=== PATIENT | female | born 1975 | race Caucasian/White ===

== ENCOUNTER 2023-07-29 08:19 | Outpatient (CLI) | payer OTHER ==
[2023-07-29 15:10] LABS: BASOPHILS # (AUTO) 0.1 10^3/uL (0.0-0.1); BASOPHILS % (AUTO) 1.2 %; EOSINOPHILS # (AUTO) 0.2 10^3/uL (0.0-0.7); EOSINOPHILS % (AUTO) 2.7 %; HCT - HEMATOCRIT 42.2 % (37.0-47.0); HGB - HEMOGLOBIN 13.6 g/dL (12.0-16.0); LYMPHOCYTES # (AUTO) 1.7 10^3/uL (1.5-3.5); LYMPHOCYTES % (AUTO) 28.1 %; MEAN CORPUSCULAR HGB CONC 32.2 g/dL (32.0-36.0); MEAN CORPUSCULAR VOLUME 96.1 fL (81.0-99.0); MEAN PLATELET VOLUME 9.6 fL (7.9-10.8); MONOCYTES # (AUTO) 0.4 10^3/uL (0.0-1.0); MONOCYTES % (AUTO) 6.7 %; NEUTROPHILS # (AUTO) 3.6 10^3/uL (1.5-6.6); NEUTROPHILS % (AUTO) 61.1 %; PLT - PLATELET COUNT 277 10^3/uL (130-450); RED BLOOD COUNT 4.39 10^6/uL (4.20-5.40); RED CELL DISTRIBUTION WIDTH 12.2 % (12.0-15.0); WHITE BLOOD COUNT 5.9 x10^3/uL (4.8-10.8)
[2023-07-29 15:51] LABS: CHOL/HDL RATIO 3.1 (<4.4); CHOLESTEROL 207 mg/dL; CRP - C-REACTIVE PROTEIN < 0.5 mg/dL (<0.5); HDL CHOLESTEROL 67 mg/dL; LDL CHOLESTEROL,CALCULATED 118 mg/dL; LDL/HDL RATIO 1.8 (<4.4); TRIGLYCERIDES 112 mg/dL (48-352); URIC ACID 4.1 mg/dL (2.3-6.6); VLDL CHOLESTEROL 22 mg/dL
[2023-07-29 16:01] LABS: RHEUMATOID FACTOR NEGATIVE (Negative)
[2023-07-30 17:08] LABS: ANTI-DNA (DS) AB QN 4 IU/mL (0-9)
== END 2023-07-29 08:20 | disposition home or self-care (01) ==
LOC: LAB.S 08:19
PROVIDERS: ATTEND Physician Assistant Medical
DX: M15.4 Erosive (osteo)arthritis (principal); Z13.9 Encounter for screening, unspecified
CPT/HCPCS: 36415; 80061; 81374; 83721; 84550; 85025; 85651; 86038; 86140; 86160; 86200; 86225; 86430

== ENCOUNTER 2023-10-22 10:20 | Outpatient (CLI) | payer OTHER ==
--- NOTE | 2023-10-22 10:56 | Sleep Patient Instructions ---
Sleep Center Visit Summary - Patient Visit Information Reason for Visit: Initial consult for evaluation of sleep disordered breathing and other sleep issues. - Patient Instructions Additional Instructions: You will be completing a sleep study, either an in-lab polysomnography (PSG) or home sleep study (HST). You will follow-up in the sleep care office after the sleep study is completed to hear the results and talk about therapy, if needed. You will be called by our office staff to schedule this appointment, but you may contact us with any questions. - Clinic Information Contact: [facility] [address] [place] [id number] [email or web address] T: [phone]
--- NOTE | 2023-10-22 11:00 | SLEEP CARE CONSULTATION ---
Information from patient questionnaire entered by Sterling Lea. I have reviewed and concur with the information entered by Sterling Lea. This document represents the service I personally performed and the decisions made by me, Anabella Edwards ARNP. History of Present Illness Service Date and Time: 10/22/2023 1020 Reason for Visit: New patient Chief Complaint: reports: Excessive daytime sleepiness, Observed pauses in breathing, Fatigue Date of Onset: DECADE Usual bedtime: 2100 Time it takes to fall asleep: 30MINS Snores at night: Yes Observed to quit breathing while asleep: Yes Sleeps alone due to snoring: Yes Number of times waking at night: 4 Reasons for waking at night: reports: Choking, Snoring, Gasping for air, Pain, Bathroom, Other (NOISE AND UNKNOWN REASONS) Toss, Turn, or Twitch while sleeping: Yes Recalls having dreams: Yes Usually gets out of bed at: 0700 Feels refreshed in the morning: No Morning headache: No Sleepy or fatigued during the day: Yes Ever fallen asleep while driving: No Takes day naps: Yes (1 time a month) Dreams during day naps: Yes Prior sleep studies: Yes Year and Where: 2013 Additional HPI information: I had the pleasure of seeing EMY PEDROZA today regarding the possibility of her having a sleep disorder. Her current complaints are excessive daytime sleepiness, observed pauses in breathing and fatigue. She says about 10 years ago she was diagnosed with severe sleep apnea in [facility]. They did set her up with a CPAP but she just could not tolerate using it. She is currently being treated for restless leg syndrome with pramipexole with improvement of her RLS. She returns today because she knows she needs to take care of her sleep apnea. She states she has lost about 20 pounds in the last 5 years. She does not feel she has been waking up gasping or choking in her sleep very much. She still snores. She is fatigued and sleepy throughout the day but states lately she has not been napping very often. - Parasomnia Symptoms Ever been unable to move upon waking from sleep: No Walks in sleep: No Talks in sleep: Yes Ever acted out dreams in sleep: No Ever felt weak in the knees when startled or emotional: No Bothered by creepy, crawly, restless sensations in legs: Yes (treated for RLS, controlled with pramipexole) Problems with memory or concentration: Yes (both) Subjective Initial [place] Sleepiness Scale score: 5 (10/22/23) Past Medical History Past Medical History: reports: Hypertension, Depression, Other (RLS) Social History The patient's occupation is a [employer]. Patient is and lives in [place]. Have you smoked in the past 12 months: No Alcohol use: Yes Alcohol amount and frequency: COUPLE DRINKS A WEEK Caffeine use: Yes Caffeine amount and frequency: 1 DAILY Family History Family history of sleep disordered breathing: Yes Family Hx Sleep Apnea: Father: Snoring, Sleep apnea - Treated, Sleep apnea - Untreated, Sibling: Snoring, Sleep apnea - Treated Allergies and Home Medications Known drug allergies: No Drug allergies reviewed: Yes Home medication list reviewed: Yes (as listed) Allergy and home medication list: Allergies No Known Drug Allergies Allergy (Verified 10/22/23 10:39) Home Medications Pramipexole [Mirapex] See Rx Instructions .ROUTE .COMPLEX 10/22/23 [History] Prexum See Rx Instructions .ROUTE .COMPLEX 10/22/23 [History] buPROPion [Wellbutrin Xl] See Rx Instructions .ROUTE .COMPLEX 10/22/23 [History] Review of Systems Weight loss over past 5 years: 20 Cardiovascular: reports: high blood pressure Gastrointestinal: denies: heartburn Neurological: denies: headaches Psychiatric: reports: depression Ear/Nose/Throat: denies: tonsillectomy Musculoskeletal: reports: joint pain Immunologic: reports: rash Physical Exam Vital signs obtained and entered by: STERLING Smith MA Blood Pressure: 154/98 (LEFT ARM) Cuff size: regular Heart Rate: 79 O2 Saturation: 96 Height: 5 ft 5.75 in Weight: 159 lb 6.4 oz Body Mass Index: 25.9 BMI Classification: Overweight Neck circumference: 15.5 Nostrils: patent to airflow Mouth and throat: narrow oropharynx Soft palate: long Hard palate: normal Uvula: normal Uvula visualization: 50% Mallampati Class II Tongue: enlarged in size with teeth bragg on lateral edges Tonsils: 1+ Neck: normal w/o lymphadenopathy or thyromegaly Heart: regular rate and rhythm Lungs: clear bilaterally Impression and Plan 1. Suspected Obstructive Sleep Apnea-Hypopnea Syndrome, as previously diagnosed and as suggested suggested by a history of loud and irregular snoring, observed cessation of breath while asleep, gasping or choking in sleep, unrefreshed sleep, cognitive impairment, and excessive daytime sleepiness. Narrow oropharynx and obesity are common predisposing factors for obstructive sleep apnea- hypopnea syndrome. I recommend proceeding to polysomnography to confirm the diagnosis and to assess severity. If the patient has significant sleep disordered breathing, a manual CPAP titration study will also be performed to find the optimal treatment pressure. I informed the patient of what the sleep studies involve and after some discussion, obtained agreement to proceed. The pathophysiology of obstructive sleep apnea-hypopnea syndrome was discussed with the patient and health risks of cardiovascular and cerebrovascular disease if not treated. Risks of drowsy driving discussed in detail and patient advised to avoid long distance driving and to slab puller at the first sign of drowsiness. Patient agreed to plan. * Schedule polysomnography * Avoid long distance driving or driving when feeling sleepy. * Avoid alcohol, sedative and muscle relaxant around bedtime. * Attempt to lose weight. * Review instructions provided by trained office staff on how to prepare for the sleep study. * Return for follow-up after sleep study completed. Counseling Topics: Weight control Plan: PSG/HST and followup Visit Type: In Office Time Spent with Patient (minutes): 30 Provider Statement: I spent 100% of the Face to Face Visit with the patient with greater than 50% spent counseling the patient and coordination of care.
[2023-10-22 11:08] VITALS: BP 154/98; O2SAT 96
== END 2023-10-22 10:21 | disposition home or self-care (01) ==
LOC: SC 10:20
PROVIDERS: ATTEND Nurse Practitioner Family
DX: G47.33 Obstructive sleep apnea (adult) (pediatric) (principal); E66.3 Overweight; Z68.25 Body mass index [BMI] 25.0-25.9, adult
CPT/HCPCS: 99203; 99212

== ENCOUNTER 2023-11-26 08:33 | Day surgery (SDC) | payer OTHER ==
[2023-11-26] MEDS: LACTATED RINGERS 1,000 ML IV ONE ×2 (08:36→10:27)
[2023-11-26] MEDS ORDERED: PROPOFOL 500 MG/50 ML 500 MG/50 ML VIAL ONE (09:01)
--- NOTE | 2023-11-26 09:25 | ANESTHESIA ---
Pre-Anesthesia VS, & Labs - Diagnosis screening - Procedure colonoscopy Vital Signs: Temp Pulse Resp BP Pulse Ox O2 Flow Rate 36.4 C L 82 16 155/85 H 100 11/26/23 08:40 11/26/23 08:40 11/26/23 08:40 11/26/23 08:40 11/26/23 08:40 Height: 5 ft 5 in Weight (kg): 70.8 kg Body Mass Index: 25.9 BMI Classification: Overweight - NPO >8 hours Last Fluid Intake: am prep - Is Patient ?: Waiver signed - Lab Results Lab results reviewed: Yes Home Medications and Allergies Pramipexole [Mirapex] See Rx Instructions .ROUTE .COMPLEX 10/22/23 Prexum See Rx Instructions .ROUTE .COMPLEX 10/22/23 buPROPion [Wellbutrin Xl] See Rx Instructions .ROUTE .COMPLEX 10/22/23 Allergies/Adverse Reactions: Allergies Allergy/AdvReac Type Severity Reaction Status Date / Time No Known Drug Allergies Allergy Verified 10/22/23 10:39 Anes History & Medical History - Anesthetic History Anesthesia Complications: reports: No previous complications Family history of Anesthesia Complications: Denies Family history of Malignant Hyperthermia: Denies - Medical History Cardiovascular: reports: Hypertension Pulmonary: reports: None, Other (possible sleep disorder, study in the future) Gastrointestinal: reports: None Urinary: reports: None Musculoskeletal: reports: None Endocrine/Autoimmune: reports: None Skin: reports: None - Surgical History Orthopedic: reports: Rotator cuff repair, Other (neck fusion) Exam General: Alert, Oriented x3, Cooperative Dental: WNL Mouth Openin Fingerbreadth Neck Mobility: Reduced Mallampati classification: II Thyromental Distance: 4-6 cm Respiratory: Lungs clear, Normal breath sounds, No respiratory distress Cardiovascular: Regular rate Neurological: Normal speech Mental/Cognitive Status: Alert/Oriented X3, Normal for patient Cognitive Status: Within normal limits Plan Anesthesia Type: Total IV Consent for Procedure(s) Verified and Reviewed: Yes Code Status: Attempt Resuscitation ASA classification: 2-Mild systemic disease Is this case an emergency?: No
--- NOTE | 2023-11-26 09:32 | HISTORY & PHYSICAL EXAMINATION ---
Chief Complaint - Chief Complaint Chief Complaint: here for colonoscopy History of Present Illness - History Obtained From Records Reviewed: yes History obtained from: pt Exam Limitations: none - History of Present Illness HPI Comment/Other: here for colonoscopy for screening. no gi problems or fhx colon ca. recent cbc normal. History - Past Medical History Cardiovascular: reports: Hypertension Respiratory: reports: None Endocrine/Autoimmune: reports: None GI: reports: None : reports: None HEENT: reports: None Psych: reports: Depression Musculoskeletal: reports: None Derm: reports: None MRSA Hx?: No - Past Surgical History Ortho: reports: Rotator cuff repair Meds/Allgy - Home Medications Home Medications: Ambulatory Orders Medication Instructions Recorded Confirmed Pramipexole [Mirapex] See Rx Instructions .ROUTE .COMPLEX 10/22/23 11/26/23 Prexum See Rx Instructions .ROUTE .COMPLEX 10/22/23 11/26/23 buPROPion [Wellbutrin Xl] See Rx Instructions .ROUTE .COMPLEX 10/22/23 11/26/23 - Allergies Allergies/Adverse Reactions: Allergies Allergy/AdvReac Type Severity Reaction Status Date / Time No Known Drug Allergies Allergy Verified 10/22/23 10:39 Review of Systems - Other Findings Other Findings: 10 pt ros as above otherwise unremarkable Exam - Vital Signs Vital Signs: Vital Signs x48h Temp Pulse Resp BP Pulse Ox 11/26/23 08:40 36.4 C L 82 16 155/85 H 100 - Physical Exam General Appearance: positive: No acute distress, Alert Eyes Bilateral: positive: PERRL, EOMI ENT: positive: No signs of dehydration Neck: positive: No JVD, Trachea midline Respiratory: positive: No respiratory distress Cardiovascular: positive: Regular rate & rhythm Abdomen: positive: No distention Neurologic/Psychiatric: positive: Oriented x3 Conclusion/Plan - Problem List (1) Colon cancer screening Conclusion/Plan: plan colonoscopy. parq held and consent obtained - Lab Results Lab results reviewed: Yes
[2023-11-26] MEDS ORDERED: LIDOCAINE-MPF 2% 5 ML VIAL ONE (09:47)
[2023-11-26] MEDS ORDERED: PROPOFOL 200 MG/20 ML VIAL IVP ONE ×2 (10:06→10:20)
[2023-11-26 10:52] VITALS: BP 120/86; O2SAT 98
--- NOTE | 2023-11-26 12:39 | ANESTHESIA POST OP EVALUATION ---
Anesthesia Post Eval - Post Anesthesia Eval Vitals: Last Vital Signs Temp 36.5 C 11/26/23 10:50 Pulse 75 11/26/23 10:50 Resp 16 11/26/23 10:50 BP 120/86 H 11/26/23 10:50 Pulse Ox 98 11/26/23 10:50 O2 Flow Rate CV Function Including HR & BP: Stable Pain Control: Satisfactory Nausea & Vomiting: Negative Mental Status: Baseline Respiratory Status: Airway Patent Hydration Status: Satisfactory Anesthesia Complications: None
== END 2023-11-26 08:34 | disposition home or self-care (01) ==
LOC: SDS 08:33
PROVIDERS: ATTEND Surgery
PROC: 0DBK8ZX Excision of Ascending Colon, Via Natural or Artificial Opening Endoscopic, Diagnostic (ICD-10-PCS; principal; 2023-11-26 09:30)
DX: Z12.11 Encounter for screening for malignant neoplasm of colon (principal); K63.5 Polyp of colon; I10 Essential (primary) hypertension; Z53.20 Procedure and treatment not carried out because of patient's decision for unspecified reasons
CPT/HCPCS: 45380; J7120

== ENCOUNTER 2023-12-10 19:41 | Outpatient (CLI) | payer OTHER | END 2023-12-10 19:42 | disposition home or self-care (01) | LOC: SC 19:41 | PROVIDERS: ATTEND Nurse Practitioner Family | DX: G47.61 Periodic limb movement disorder (principal) | CPT/HCPCS: 95810 ==